=== PATIENT | male | born 1990 ===

== ENCOUNTER 2021-08-19 09:17 | Emergency (ER) | payer OTHER ==
[2021-08-19] MEDS ORDERED: Sodium Chloride 0.9% 2.5 ML Syringe FLUSH PRN (09:40)
[2021-08-19] MEDS ORDERED: Sodium Chloride 0.9% 10 ML Syringe FLUSH PRN (09:40)
--- NOTE | 2021-08-19 09:51 | EDM.PDOC ---
ED HPI GENERAL MEDICAL PROBLEM - General Chief Complaint: Respiratory Problem Stated Complaint: FROM WALK IN Time Seen by Provider: 08/19/21 09:30 - History of Present Illness INITIAL COMMENTS - FREE TEXT/NARRATIVE: 31-year-old male presents from the walk-in clinic. He reports 10 days of cough and 3 days of shortness of breath. He denies chest pain lightheadedness dizziness sore throat fatigue nausea vomiting diarrhea myalgias or arthralgias or any other symptoms. He reports the symptoms been going on for 10 days and persistent shortness of breath has been gradually worsening over the last 3 days. Denies any other medical problems no exacerbating or alleviating factors radiation or other associated symptoms. - Related Data Allergies Allergy/AdvReac Type Severity Reaction Status Date / Time No Known Allergies Allergy Verified 08/19/21 09:31 Home Meds: Home Meds Benzonatate [Tessalon Perles] 100 mg PO TID PRN 7 Days #21 cap 08/19/21 [Rx] Past Medical History - Past Health History Medical/Surgical History: Denies Medical/Surgical History Social & Family History - Family History Family Medical History: No Pertinent Family History - Tobacco Use Tobacco Use Status *Q: Current Every Day Tobacco User Years of Tobacco use: 10 Packs/Tins Daily: 0.2 - Caffeine Use Caffeine Use: Reports: Tea - Alcohol Use Days Per Week of Alcohol Use: 1 Number of Drinks Per Day: 6 Total Drinks Per Week: 6 - Recreational Drug Use Recreational Drug Use: No ED ROS GENERAL - Review of Systems Review Of Systems: See Below Free Text/Narrative/Comment: General: No fever. Skin: No rash. Eyes: No vision problems. ENT: No sore throat. Neck: No neck stiffness. Respiratory: Per HPI Cardiac: No chest pain. Gastrointestinal: No nausea, vomiting or abdominal pain. Urinary: No dysuria. Musculoskeletal: No myalgias/arthralgias. Neurologic: No headache. ED EXAM, GENERAL - Physical Exam Exam: See Below Free Text/Narrative:: General Appearance: No acute distress, appears comfortable Skin: No rash HEENT: Normocephalic/atraumatic, sclera anicteric, mucous membranes moist Neck: Normal range of motion Chest and Lungs: Bilateral breath sounds, scant crackles Cardiovascular: Regular rate and rhythm Abdomen: Soft, non-tender Musculoskeletal: No edema or tenderness Neurologic: Awake, alert, no obvious deficits, moving all extremities Psychiatric: Appropriate, cooperative #1 Interpretation EKG Date: 08/19/21 Time: 09:51 EKG Interpretation Comments: Normal sinus rhythm rate of 81 normal axis and intervals no acute ischemia normal EKG Course - Vital Signs Last Recorded V/S: Last Vital Signs Temp 99.3 F 08/19/21 09:25 Pulse 81 08/19/21 13:58 Resp 18 08/19/21 13:58 BP 123/78 08/19/21 13:58 Pulse Ox 92 L 08/19/21 13:58 - Orders/Labs/Meds Orders: Active Orders 24 hr Category Date Time Status Sodium Chloride 0.9% [Saline Flush] Med 08/19/21 09:40 Active 10 ml FLUSH ASDIRECTED PRN Sodium Chloride 0.9% [Saline Flush] Med 08/19/21 09:40 Active 2.5 ml FLUSH ASDIRECTED PRN Isolation [COMM] Routine Oth 08/19/21 09:41 Active Saline Lock Insert [OM.PC] Stat Oth 08/19/21 09:40 Ordered Medication Orders Sodium Chloride (Sodium Chloride 0.9% 10 Ml Syringe) 10 ml FLUSH ASDIRECTED PRN PRN Reason: Keep Vein Open Last Admin: 08/19/21 09:46 Dose: 10 ml Documented by: YA Sodium Chloride (Sodium Chloride 0.9% 2.5 Ml Syringe) 2.5 ml FLUSH ASDIRECTED PRN PRN Reason: Keep Vein Open Last Admin: 08/19/21 09:46 Dose: 2.5 ml Documented by: YA Labs: Laboratory Tests 08/19/21 08/19/21 08/19/21 Range/Units 09:30 09:30 09:30 WBC 8.30 (4.0-11.0) K/uL RBC 4.90 (4.50-5.90) M/uL Hgb 14.1 (13.0-17.0) g/dL Hct 41.2 (38.0-50.0) % MCV 84.1 (80.0-98.0) fL MCH 28.8 (27.0-32.0) pg MCHC 34.2 (31.0-37.0) g/dL RDW Std Deviation 36.8 (28.0-62.0) fl RDW Coeff of Oumou 12 (11.0-15.0) % Plt Count 355 (150-400) K/uL MPV 9.40 (7.40-12.00) fL Neut % (Auto) 63.1 (48.0-80.0) % Lymph % (Auto) 23.6 (16.0-40.0) % Blaine % (Auto) 13.0 (0.0-15.0) % Eos % (Auto) 0.1 (0.0-7.0) % Baso % (Auto) 0.2 (0.0-1.5) % Neut # (Auto) 5.2 (1.4-5.7) K/uL Lymph # (Auto) 2.0 (0.6-2.4) K/uL Blaine # (Auto) 1.1 H (0.0-0.8) K/uL Eos # (Auto) 0.0 (0.0-0.7) K/uL Baso # (Auto) 0.0 (0.0-0.1) K/uL Nucleated RBC % 0.0 /100WBC Nucleated RBCs # 0 K/uL D-Dimer, Quantitative 0.65 H (0.0-0.50) mg/L FEU Sodium 132 L (136-148) mmol/L Potassium 3.5 (3.5-5.1) mmol/L Chloride 92 L (98-107) mmol/L Carbon Dioxide 28.5 (21.0-32.0) mmol/L BUN 12 (7.0-18.0) mg/dL Creatinine 1.3 (0.8-1.3) mg/dL Est Cr Clr Drug Dosing 83.09 mL/min Estimated GFR (MDRD) > 60.0 ml/min Glucose 133 H (74-106) mg/dL Calcium 8.4 L (8.5-10.1) mg/dL Total Bilirubin 2.0 H (0.2-1.0) mg/dL AST 124 H (15-37) IU/L ALT 186 H (14-63) IU/L Alkaline Phosphatase 126 H (46-116) U/L Troponin I < 0.050 (0.000-0.056) ng/mL Total Protein 8.4 H (6.4-8.2) g/dL Albumin 2.8 L (3.4-5.0) g/dL Globulin 5.6 H (2.6-4.0) g/dL Albumin/Globulin Ratio 0.5 L (0.9-1.6) Meds: Medications Generic Name Dose Route Start Last Admin Trade Name Freq PRN Reason Stop Dose Admin Sodium Chloride 10 ml 08/19/21 09:40 08/19/21 09:46 Sodium Chloride 0.9% 10 Ml Syringe FLUSH 10 ml ASDIRECTED PRN Administration Keep Vein Open Sodium Chloride 2.5 ml 08/19/21 09:40 08/19/21 09:46 Sodium Chloride 0.9% 2.5 Ml Syringe FLUSH 2.5 ml ASDIRECTED PRN Administration Keep Vein Open Departure - Departure Time of Disposition: 14:35 Disposition: Home, Self-Care 01 Condition: Good Clinical Impression: COVID-19 - Discharge Information *PRESCRIPTION DRUG MONITORING PROGRAM REVIEWED*: Not Applicable *COPY OF PRESCRIPTION DRUG MONITORING REPORT IN PATIENT MARY: Not Applicable Prescriptions: Benzonatate [Tessalon Perles] 100 mg PO TID PRN 7 Days #21 cap PRN Reason: Cough Instructions: 10 Things You Can Do to Manage Your COVID-19 Symptoms at Home - [facility] (05/02/2021) Referrals: PCP,None [Primary Care Provider] - Forms: ED Department Discharge Additional Instructions: Your symptoms are due to ongoing COVID-19 infection. They should improve in the coming days. You can use the cough suppressant up to 3 times daily if you need it. If your symptoms worsen please follow-up with the clinic. The following information is given to patients seen in the emergency department who are being discharged to home. This information is to outline your options for follow-up care. We provide all patients seen in our emergency department with a follow-up referral. The need for follow-up, as well as the timing and circumstances, are variable depending upon the specifics of your emergency department visit. If you don't have a primary care physician on staff, we will provide you with a referral. We always advise you to contact your personal physician following an emergency department visit to inform them of the circumstance of the visit and for follow-up with them and/or the need for any referrals to a consulting specialist. The emergency department will also refer you to a specialist when appropriate. This referral assures that you have the opportunity for follow-up care with a specialist. All of these measure are taken in an effort to provide you with optimal care, which includes your follow-up. Under all circumstances we always encourage you to contact your private physician who remains a resource for coordinating your care. When calling for follow-up care, please make the office aware that this follow-up is from your recent emergency room visit. If for any reason you are refused follow-up, please contact the [facility] Emergency Department at and asked to speak to the emergency department charge nurse. Sepsis Event Note (ED) - Evaluation Sepsis Screening Result: No Definite Risk - Focused Exam Vital Signs: Vital Signs Temp Pulse Resp BP Pulse Ox 08/19/21 13:58 81 18 123/78 92 L 08/19/21 09:25 99.3 F 88 20 133/80 91 L - My Orders Last 24 Hours: My Active Orders 08/19/21 09:40 Sodium Chloride 0.9% [Saline Flush] 10 ml FLUSH ASDIRECTED PRN Sodium Chloride 0.9% [Saline Flush] 2.5 ml FLUSH ASDIRECTED PRN Saline Lock Insert [OM.PC] Stat 08/19/21 09:41 Isolation [COMM] Routine - Assessment/Plan Last 24 Hours: My Active Orders 08/19/21 09:40 Sodium Chloride 0.9% [Saline Flush] 10 ml FLUSH ASDIRECTED PRN Sodium Chloride 0.9% [Saline Flush] 2.5 ml FLUSH ASDIRECTED PRN Saline Lock Insert [OM.PC] Stat 08/19/21 09:41 Isolation [COMM] Routine Assessment:: 31-year-old male presenting with 10 days of cough now 3 days of shortness of breath. I would favor COVID-19 given the prevalence and the fact that the patient is unvaccinated. No findings that suggest CHF his EKG is normal. ACS felt unlikely but troponin pending. Bacterial pneumonia is also possible and x- ray pending. Is unclear at this time what his room air oxygen saturation was. As far as I am aware the clinic did not call us prior to his transfer and by the time I saw the patient he was already on oxygen. 1020: Patient is known to be Covid positive. He did not share this with me. Given this and his worsening over the last 3 days D-dimer will be added. But I suspect this is likely persistent Covid symptoms. Patient oxygen is 90 on room air. 1435: Labs are unremarkable with exception of mild transaminitis which is consistent with his Covid. Chest x-ray unremarkable but D-dimer positive so CT performed CT also consistent with Covid there is some mild perinephric fat s tranding but renal function on labs looks good. No pulmonary embolism. Patient's vital signs remain good he is satting well on room air. He has been consistently satting above 90 on room air and there is no indication for admission. Adela Hurd sent to the pharmacy for his cough patient felt stable for discharge.
[2021-08-19 10:12] LABS: BLOOD UREA NITROGEN,BUN 12 mg/dL (7.0-18.0); CARBON DIOXIDE,CO2 28.5 mmol/L (21.0-32.0); CHLORIDE,CL 92 mmol/L (98-107); GLUCOSE RANDOM 133 mg/dL (74-106); POTASSIUM,K 3.5 mmol/L (3.5-5.1); SODIUM,NA 132 mmol/L (136-148)
--- NOTE | 2021-08-19 10:37 | CR ---
INDICATION: Cough and SOB. TECHNIQUE: Upright portable AP image of the chest. COMPARISON: None. FINDINGS: Shallow inspiration with infiltrates in the mid inferior aspects of both lungs, greater on the left. No pleural fusion. Heart size within normal limits. Pulmonary veins not obviously engorged. No significant bony abnormality. IMPRESSION: Shallow inspiration with apparent infiltrates in the mid inferior aspects of both lungs, greater on the left. Dictated by Vel Squires MD @ 08/19/2021 10:35:10 AM (Electronically Signed)
--- NOTE | 2021-08-19 14:07 | CT ---
INDICATION: [id number], COVID positive, positive D-dimer. COMPARISON: Chest radiograph 08/19/2021. TECHNIQUE: CT of the chest with 75 cc of Isovue 370 IV contrast. Coronal and sagittal reconstructions. 3D post processing was performed. FINDINGS: Normal heart size. Normal caliber thoracic aorta and central pulmonary arteries. Negative for acute pulmonary embolism. No pericardial effusion. There is subcarinal and right greater than left hilar lymphadenopathy which is likely reactive. There are peripheral and basilar predominant patchy ground-glass opacities throughout the lungs bilaterally which are moderate in severity. Findings are compatible with COVID pneumonia. No pleural effusion or pneumothorax. 2 mm noncalcified pulmonary nodule along the right minor fissure (series 602, image 89). This likely represents a benign intrapulmonary lymph node. No other discrete pulmonary nodules identified. No central endobronchial lesion. The imaged thyroid gland is normal in appearance. Mild perinephric edema bilaterally, greater on the right. The visualized upper abdomen is otherwise unremarkable. The bones are unremarkable. IMPRESSION: 1. Negative for acute pulmonary embolism. 2. Moderate bilateral patchy pulmonary opacities compatible with COVID pneumonia. 3. Subcarinal and bilateral hilar lymphadenopathy is likely reactive. 4. Mild bilateral perinephric edema is nonspecific but could suggest underlying kidney injury. Please note that all CT scans at this facility use dose modulation, iterative reconstruction, and/or weight-based dosing when appropriate to reduce radiation dose to as low as reasonably achievable. Dictated by Kenzie Mederos MD @ 08/19/2021 2:04:50 PM (Electronically Signed)
[2021-08-19] MEDS ORDERED: Iopamidol 755 MG/ML 500 ML Multipack Bottle IVPUSH STA (17:05)
== END 2021-08-19 14:53 | disposition home or self-care (01) ==
LOC: MW.ED 09:17
DX: U07.1 COVID-19 (principal); Z72.0 Tobacco use
CPT/HCPCS: 36415; 71045; 71275; 80053; 84484; 85025; 85379; 87804; 93005; 99285; Q9967